=== PATIENT | female | born 1980 | race Caucasian/White ===

== ENCOUNTER 2024-04-03 16:35 | Emergency (ER) | payer SELFPAY ==
[2024-04-03] MEDS: Sodium Chloride 0.9% 1,000 ML IV ONE (16:36)
[2024-04-03] MEDS ORDERED: Sodium Chloride 0.9% 10 ML Syringe FLUSH PRN (16:50)
[2024-04-03 17:20] LABS: BASOPHILS ABSOLUTE AUTO 0.08 10^3/uL (0.00-0.10); BASOPHILS PERCENT AUTO 0.8 % (0.0-1.0); EOSINOPHILS ABSOLUTE AUTO 0.31 10^3/uL (0.10-0.30); HEMATOCRIT 34.9 % (37.0-47.0); HEMOGLOBIN 11.4 g/dL (12.0-16.0); IMMATURE GRAN ABSOLUTE AUTO 0.05 10^3/uL (0.00-0.50); IMMATURE GRAN PERCENT AUTO 0.5 % (0.0-5.0); LYMPHOCYTES ABSOLUTE AUTO 3.05 10^3/uL (1.00-4.00); LYMPHOCYTES PERCENT AUTO 29.5 % (20.0-40.0); MEAN CORPUSCULAR HEMOGLOBIN 23.8 pg (27.0-31.0); MEAN CORPUSCULAR HGB CONC 32.7 g/dL (32.0-36.0); MEAN PLATELET VOLUME 9.8 fL (7.4-10.4); MONOCYTES ABSOLUTE AUTO 0.74 10^3/uL (0.10-0.80); MONOCYTES PERCENT AUTO 7.1 % (2.0-8.0); NEUTROPHILS ABSOLUTE AUTO 6.12 10^3/uL (2.50-7.00); NEUTROPHILS PERCENT AUTO 59.1 % (50.0-70.0); PLATELET COUNT,PLT 345 10^3/uL (150-400); RED BLOOD CELL COUNT 4.78 10^6/uL (3.80-5.50); RED CELL DISTRIBUTION WIDTH 13.9 % (11.5-14.5); WHITE BLOOD CELL COUNT,WBC 10.35 10^3/uL (5.00-10.00)
[2024-04-03 17:31] LABS: O2 DELIVERY DEVICE ROOM AIR; PH,ARTERIAL 7.45 pH (7.35-7.45)
[2024-04-03 17:32] LABS: BASE EXCESS ARTERIAL 1 mmol/L ((-2)-(+3)); BICARBONATE,ARTERIAL 25 mmol/L (21-28); O2 SATURATION ARTERIAL 86.8 %; PCO2 ARTERIAL 35 mmHG (35-48)
[2024-04-03 17:34] LABS: PO2 ARTERIAL 50 mmHG (83-108)
[2024-04-03 17:40] LABS: APPEARANCE,URINE CLOUDY (CLEAR); BILIRUBIN,URINE NEGATIVE (NEGATIVE); COLOR,URINE YELLOW (YELLOW); GLUCOSE,URINE >=1000 mg/dL (NEGATIVE); KETONES,URINE NEGATIVE (NEGATIVE); LEUKOCYTE ESTERASE,URINE SMALL (NEGATIVE); NITRITE,URINE NEGATIVE (NEGATIVE); OCCULT BLOOD,URINE MODERATE (NEGATIVE); PROTEIN,URINE NEGATIVE (NEGATIVE); UROBILINOGEN,URINE 0.2 E.U./dL (0.2-1.0)
[2024-04-03 17:47] LABS: ALANINE AMINOTRANSFERASE,ALT 46 U/L (14-63); ALBUMIN 2.49 g/dL (3.40-5.00); ALKALINE PHOSPHATASE 187 U/L (46-116); ANION GAP 14.8 mmol/L (5-15); ASPARTATE AMNIOTRANSFERASE,AST 27 U/L (15-37); BILIRUBIN TOTAL 0.4 mg/dL (0.2-1.0); BLOOD UREA NITROGEN,BUN 8 mg/dL (7-18); C-REACTIVE PROTEIN 1.44 mg/dL (0.00-0.50); CALCIUM 7.7 mg/dL (8.7-10.3); CARBON DIOXIDE,CO2 24.9 mmol/L (21.0-32.0); CHLORIDE,CL 94 mmol/L (98-107); CREATININE 0.59 mg/dL (0.51-1.17); EST CRCL DRUG DOSING (CG) 117.47 mL/min; MAGNESIUM 1.6 mg/dL (1.8-2.4); POTASSIUM,K 3.7 mmol/L (3.5-5.1); PROTEIN TOTAL,TP 6.3 g/dL (6.4-8.2); SODIUM,NA 130 mmol/L (136-145); TSH ULTRASENSITIVE 4.634 uIU/mL (0.340-4.820)
[2024-04-03 17:48] LABS: ESTIMATED GFR 116 mL/min (>=60); ETHANOL BLOOD MEDICAL < 3 mg/dL (<3); GLUCOSE RANDOM 438 mg/dL (70-140)
[2024-04-03 17:49] LABS: AMPHETAMINES SCREEN, URINE NEGATIVE (NEGATIVE); BARBITURATE SCREEN,URINE NEGATIVE (NEGATIVE); BENZODIAZEPINES SCREEN,URINE NEGATIVE (NEGATIVE); COCAINE METABOLITES,URINE NEGATIVE (NEGATIVE); METHADONE SCREEN, URINE NEGATIVE (NEGATIVE); METHAMPHETAMINES SCREEN, URINE POSITIVE (NEGATIVE); OXYCODONE SCREEN,URINE NEGATIVE (NEGATIVE); PCP SCREEN,URINE NEGATIVE (NEGATIVE); TCA SCREEN,URINE NEGATIVE (NEGATIVE); THC SCREEN,URINE 50 NG/ML NEGATIVE (NEGATIVE)
[2024-04-03 17:56] LABS: B-TYPE NATRIURETIC PEPTIDE,BNP 50 pg/mL (0-100)
[2024-04-03 18:00] LABS: BACTERIA,URINE FEW /HPF (NONE TO FEW); EPITHELIAL CELLS,URINE RARE /LPF; RBC,URINE 20-30 /HPF (0-5); YEAST,URINE RARE /HPF (NEGATIVE)
[2024-04-03] MEDS: Metoprolol Tartrate 5 MG/5 ML SDV IVPUSH ONE (18:03)
[2024-04-03] MEDS: Insulin Regular, Human 100 Units/ML 10 ML Vial IV ONE (19:04)
[2024-04-03] MEDS: metFORMIN 500 MG Tab.ER PO ONE (22:24)
[2024-04-03] MEDS: Lisinopril 10 MG Tab PO ONE (22:24)
[2024-04-04 06:24] LABS: HEMOGLOBIN A1C > 14.0 % (4.3-5.7)
== END 2024-04-03 22:35 | disposition home or self-care (01) ==
LOC: KA.ED 16:35
DX: E11.65 Type 2 diabetes mellitus with hyperglycemia (principal); J44.89 Other specified chronic obstructive pulmonary disease; E66.9 Obesity, unspecified; Z68.33 Body mass index [BMI] 33.0-33.9, adult; Z87.891 Personal history of nicotine dependence; Z79.84 Long term (current) use of oral hypoglycemic drugs; Z88.8 Allergy status to other drugs, medicaments and biological substances
CPT/HCPCS: 36415; 36600; 71045; 80053; 80305; 80307; 81001; 82803; 82947; 83036; 83735; 83880; 84443; 84484; 85025; 85379; 86140; 87086; 93005; 96361; 96374; 99285; A9270; J3490; J7030; 93010; 99284